=== PATIENT | female | born 1970 | race Two or more races ===

== ENCOUNTER → 2024-12-24 | Outpatient (CLI) | payer MEDICAID, SELFPAY ==
--- NOTE | 2024-12-24 14:00 | XR_ITS ---
Examination: Bone densitometry Date and time of exam:December 24, 2024 1409 hours INDICATIONS: Smoking history, menopause age 48 Technique: Lumbar spine and hip total bone mineralization values of an calculated. Peak reference and age match control results have been displayed. Findings: Lumbar spine total bone mineralization is0.937 gm/cm2. This is 1.0 standard deviations below peak reference. This is 0.1 standard deviations below age-matched controls. Hip total bone mineralization is 0.864 gm/cm2 This is 0.7 standard deviations below peak reference. This is 0.1 standard deviations below age-matched controls Impression: There is normal mineralization based on lumbar spine measurements. There is normal mineralization based on hip measurements
== END | disposition home or self-care (01) ==
LOC: CDIM 13:42
PROVIDERS: PCP Physician Assistant Medical; Referring Provider Physician Assistant Medical; Visit Provider Physician Assistant Medical
DX: M81.0 Age-related osteoporosis without current pathological fracture (principal); F17.200 Nicotine dependence, unspecified, uncomplicated
CPT/HCPCS: 77080

== ENCOUNTER 2025-06-17 22:40 | Emergency (ER) | payer MEDICAID, SELFPAY ==
[2025-06-17 22:42] VITALS: BMI 32.3
[2025-06-17 22:52] VITALS: BP 137/83; PULSE 63; RESP 19; TEMP 36.5; O2SAT 100
[2025-06-17] MEDS: AMOXICILLIN/POT CLAV 875 TABLET 1 TAB PO (23:27)
[2025-06-17] MEDS: HYDROcodone/APAP 5/325 TABLET 1 TAB PO (23:27)
[2025-06-17] MEDS: DIPHTH,PERTUSS(ACELL),TET VAC 0.5 ML SYR- ADULT IMi (23:27)
--- NOTE | 2025-06-17 23:29 | PD.EDANIML ---
ED Animal Bite RME/HPI General Chief Complaint: Animal Bite Stated Complaint: DOG BITE TO RIGHT LEG, FALL HILDA KNEE PAIN Time Seen by Provider: 06/17/25 23:17 Arrival date/time: 06/17/25 22:40 54F with no significant PMH presents to ED with R lower leg dog bite from her dog. She then fell on both her knees forward. Patient was ambulating afterward. Patient has not had a tetanus shot in the past 5 years. Limitations: no limitations Related Data Previous Rx's ?Medication ?Instructions ?Recorded ibuprofen 600 mg tablet 600 mg PO TID PRN pain #30 tabs 02/04/23 amoxicillin 875 mg-potassium 1 tab PO BID 7 days #14 tabs 06/17/25 clavulanate 125 mg tablet Allergies Allergy/AdvReac Type Severity Reaction Status Date / Time No Known Allergies Allergy Verified 06/17/25 22:42 Review of Systems Review of Systems Systems Reviewed: All systems reviewed, normal except as documented Musculoskeletal Musculoskeletal: Reports as per HPI and Reports arthralgias Integumentary/Breasts Skin/Breast: Reports as per HPI and Reports skin pain Past Medical History Past Medical History CARDIAC: Negative Congestive Heart Failure RESPIRATORY: Negative Chronic Obstructive Pulmonary Disease (COPD) GENITOURINARY: Negative Renal Disease ENDOCRINE: Negative Diabetes Mellitus Type 1 or Diabetes Mellitus Type 2 Surgical History SURGICAL: Positive Abdominal Surgery and Tubal Ligation Social History SMOKING STATUS: Current every day smoker SUBSTANCE USE: does not use ED Exam General Limitations: Present no limitations General appearance: Present alert and in no apparent distress Head Head exam: Present atraumatic Neck Neck exam: Present normal inspection, full ROM and trachea midline Chest Chest inspection: Present normal inspection and symmetric chest wall rise Extremities Exam Extremities exam: Present full ROM Expanded Lower Extremity Exam Knee exam: Present swelling Lower leg exam: Present laceration (R lower dog bite) Neurological Exam Neurological exam: Present alert and oriented X3 Psychiatric Psychiatric exam: Present normal affect and normal mood Skin Skin exam: Present warm, dry, intact and normal color Course Quality Measures none Orders Category Date Time Status Wound Care NOW Care 06/17/25 23:17 Active Amoxicillin/Pot Clav 875 [Augmentin 875] Med 06/17/25 23:17 Discontinued 1 tab PO X1 ONE HYDROcodone*/APAP 5/325 [[place] 5/325] Med 06/17/25 23:18 Discontinued 1 tab PO X1 ONE TET,DIP/PERT AC (Adult)-Tdap [Boostrix Adult (Tdap) Med 06/17/25 23:17 Discontinued Vacc] 0.5 ml IMI .ONCE ONE Vital Signs Vital signs: Vital Signs Temperature 97.7 F 06/17/25 22:52 Pulse Rate 63 06/17/25 22:52 Respiratory Rate 19 06/17/25 22:52 Blood Pressure 137/83 H 06/17/25 22:52 Pulse Oximetry (%) 100 06/17/25 22:52 Oxygen Delivery Method Room Air 06/17/25 22:52 O2 at 100% on RA and WNLs Animal Bite MDM Narrative MDM Narrative:: 54F with no significant PMH presents to ED with R lower leg dog bite from her dog. She then fell on both her knees forward. Patient was ambulating afterward. Patient has not had a tetanus shot in the past 5 years. Physical exam reveals small bite cy on R lower leg. ROM of knees normal. Gait normal. Some swelling in front of knees. Patient is afebrile, calm, and alert. Wound cleaned and bandaged. Given ABX, tdap, meds, and debt management counselor. Patient data External records reviewed:: [facility] previous records Clinical information provided by:: patient Social determinants that could affect healthcare access:: none Patient has the following chronic illnesses:: none How is presenting disease/condition affected by chronic disease/condition?: no chronic disease Evaluation data The following diagnostics were reviewed and interpreted by me:: other (specify) (none) Lab and/or radiology exams considered but not ordered:: not ordered Interpretation Summary: n/a Medications / Prescriptions Medications or Prescriptions considered but not ordered:: ordered Medication administrations:: Medication Administration History Discontinued Medications Hydrocodone Bitart/Acetaminophen (Hydrocodone/Apap 5/325 Tablet) 1 tab PO X1 ONE Stop: 06/17/25 23:19 Last Admin: 06/17/25 23:27 Dose: 1 tab Documented By: SANDIE Amoxicillin/Clavulanate Potassium (Amoxicillin/Pot Clav 875 Tablet) 1 tab PO X1 ONE Stop: 06/17/25 23:18 Last Admin: 06/17/25 23:27 Dose: 1 tab Documented By: PINOR Diphtheria/Tetanus/Acell Pertussis (Diphth,Pertuss(Acell),Tet Vac 0.5 Ml Syr- Adult) 0.5 ml IMi .ONCE ONE Stop: 06/17/25 23:18 Last Admin: 06/17/25 23:27 Dose: 0.5 ml Documented By: PINOR above Consultations Consultation(s) initiated? (list below): No Diagnosis Differential diagnosis animal bite: bite by animal, cat bite, dog bite and other (knee contusion) Most likely diagnosis given after review of the tests above:: knee contusion and dog bite Admission Indicated Admission indicated?: not indicated Admission Request Was there a request for admission?: No Disposition Plan Disposition Plan: Discharge Discharge Attestation Discharge Attestation: The patient and all family members were given an opportunity to ask questions and understood the discharge instructions. Discharge instructions specifically effects, indications for sooner follow up or return to the emergency department, and the expected course of current diagnosis. Patient condition: Stable Discharge Plan Plan Patient Disposition: HOME (Self Care) Discharge Disposition comment: Stable Prescriptions/Referrals Prescriptions/Med Rec: New amoxicillin-pot clavulanate 875-125 mg tablet 1 tab PO BID 7 Days Qty: 14 0RF No Action ibuprofen 600 mg tablet 600 mg PO TID PRN (Reason: pain) Qty: 30 0RF Problem List Clinical Impression: Dog bite, Contusion of knee Patient/Caregiver Discharge Instructions Education Materials: ED Dog Bite Additional Instructions: Please follow-up with PCP within 24-48 hours and return immediately if symptoms worsen. Ibuprofen/Tylenol can be used simultaneously for greater fever/pain control. Print Language: [place] Stand Alone Forms: Patient Portal Info Letter NANCY/KOSTAS Supervising Physician NANCY/KOSTAS Supervising Physician: Dr. Dawson
== END 2025-06-17 23:32 | disposition home or self-care (01) ==
LOC: SERX 06-18 01:27
PROVIDERS: Emergency Provider Emergency Medicine; PCP Physician Assistant Medical
DX: S80.01XA Contusion of right knee, initial encounter (principal); S81.811A Laceration without foreign body, right lower leg, initial encounter; W54.0XXA Bitten by dog, initial encounter; Z23 Encounter for immunization
CPT/HCPCS: 90471; 90715; 99281; A9270